=== PATIENT | female | born 1960 | race Native Hawaiian/Other Pacific Islander ===

== ENCOUNTER 2020-10-06 12:15 | Outpatient (CLI) | payer BC, OTHER | END 2020-10-06 15:48 | disposition home or self-care (01) | LOC: INF 12:15 | PROVIDERS: ATTEND Internal Medicine | DX: Z23 Encounter for immunization (principal) | CPT/HCPCS: 96372 ==

== ENCOUNTER 2020-10-30 10:27 | Outpatient (CLI) | payer BC, OTHER | END 2020-10-30 23:59 | disposition home or self-care (01) | LOC: INF 10:27 | PROVIDERS: ATTEND Internal Medicine | DX: Z23 Encounter for immunization (principal) | CPT/HCPCS: 96372 ==